=== PATIENT | male | born 1975 | race Two or more races ===

== ENCOUNTER 2021-02-11 12:17 | Emergency (ER) | payer MEDICAID, OTHER ==
[~2021-02-11] VITALS: Ht 170.2 cm; Wt 99.8 kg
[~2021-02-11 12:17] MED LIST: HYDR-4833 PO
[2021-02-11 13:21] LABS: Eosinophils # (auto) 0.1 10 ^3/uL (0-0.8); Mean Corpuscular Hgb Conc. 34.1 g/dL (32.0-36.0)
[2021-02-11 13:22] LABS: Basophils # (auto) 0 10 ^3/uL (0-0.2); Basophils % (auto) 0.4 % (0.0-2.0); Hemoglobin 19.1 g/dL (13.5-17.5); Lymphocytes # (auto) 2.3 10 ^3/uL (0.4-5.4); Lymphocytes % (auto) 23.2 % (10.0-50.0); Mean Corpuscular Volume 93.8 fL (80.0-100.0); Monocytes # (auto) 0.8 10 ^3/uL (0-1.3); Monocytes % (auto) 8.3 % (0.0-12.0); Neutrophils # (auto) 6.7 10 ^3/uL (1.6-8.6); Neutrophils % (auto) 67.1 % (37.0-80.0); Red Blood Cells 5.98 10^6/uL (4.5-5.90); Red Cell Distribution Width 14.4 % (11.8-14.3)
[2021-02-11 13:24] LABS: Hematocrit 56.1 % (41.0-53.0)
[2021-02-11 13:38] LABS: Calcium 10.3 mg/dL (8.5-10.1)
[2021-02-11 13:41] LABS: BUN/Creatinine Ratio 7.3; Bilirubin, Total 0.4 mg/dL (0.2-1.0); Total Protein 8.8 g/dL (6.4-8.2)
[2021-02-11 13:48] LABS: Potassium 4.5 mmol/L (3.5-5.1)
[2021-02-11 15:21] VITALS: BP 133/81
== END 2021-02-11 15:22 | disposition home or self-care (01) ==
LOC: ER 12:17
DX: K40.90 Unilateral inguinal hernia, without obstruction or gangrene, not specified as recurrent (principal); I10 Essential (primary) hypertension; F17.210 Nicotine dependence, cigarettes, uncomplicated; F12.10 Cannabis abuse, uncomplicated; F15.10 Other stimulant abuse, uncomplicated
CPT/HCPCS: 36415; 74176; 80053; 85025